=== PATIENT | female | born 1975 | race Hispanic/Latino ===

== ENCOUNTER 2022-01-23 18:03 | Emergency (ER) | payer BC ==
[~2022-01-23] VITALS: Ht 162.6 cm; Wt 108.9 kg
[2022-01-23 19:28] LABS: BASOPHILS # (AUTO) 0.1 (0.0-0.1); BASOPHILS % 0.5 % (0.0-1.0); EOSINOPHILS # (AUTO) 0.2 (0.0-0.4); EOSINOPHILS % 1.8 % (0.0-6.0); LYMPHOCYTES # (AUTO) 1.2 (1.0-3.2); LYMPHOCYTES % 12.1 % (18.0-39.1); MEAN CORPUSCULAR HEMOGLOBIN 28.4 pg (28-32); MEAN CORPUSCULAR HGB CONC 31.7 g/dL (31-35); MEAN CORPUSCULAR VOLUME 89.5 fL (81-99); MONOCYTES # (AUTO) 0.5 (0.2-0.8); MONOCYTES % 4.8 % (4.4-11.3); NEUTROPHILS # (AUTO) 8.1 (2.1-6.9); NEUTROPHILS % 80.5 % (38.7-80.0); PLATELET COUNT 290 x10e3/uL (140-360); RED BLOOD COUNT 4.58 x10e6/uL (3.6-5.1); RED CELL DISTRIBUTION WIDTH 14.7 % (11.7-14.4)
[2022-01-23 19:42] LABS: INR 0.88; PROTHROMBIN TIME 12.8 seconds (11.9-14.5)
[2022-01-23 19:43] LABS: PARTIAL THROMBOPLASTIN TIME 21.9 seconds (23.8-35.5)
[2022-01-23 19:52] LABS: ALANINE AMINOTRANSFERASE 20 IU/L (0-55); ALBUMIN 3.5 g/dL (3.5-5.0); ALBUMIN/GLOBULIN RATIO 0.7 (0.8-2.0); ALKALINE PHOSPHATASE 67 IU/L (40-150); ANION GAP 13.8 mmol/L (8-16); BLOOD UREA NITROGEN 18 mg/dL (7-26); BUN/CREATININE RATIO 28 (6-25); CALCIUM 8.2 mg/dL (8.4-10.2); CARBON DIOXIDE 23 mmol/L (22-29); CHLORIDE 104 mmol/L (98-107); CREATINE KINASE 22 IU/L (29-168); CREATININE, SERUM 0.65 mg/dL (0.57-1.11); EST GLOMERULAR FILTRATION RATE 99 ML/MIN (60-); GLUCOSE 91 mg/dL (74-118); POTASSIUM 4.8 mmol/L (3.5-5.1); SODIUM 136 mmol/L (136-145)
[2022-01-23 20:22] LABS: FERRITIN 19.06 ng/mL (4.63-204.00)
== END 2022-01-23 21:45 | disposition home or self-care (01) ==
LOC: ER 18:52
DX: R00.2 Palpitations (principal); R53.1 Weakness; D64.9 Anemia, unspecified; R20.2 Paresthesia of skin
CPT/HCPCS: 36415; 80053; 82550; 82553; 82728; 83540; 84466; 84484; 85025; 85610; 85730; 93005; 99283